=== PATIENT | female | born 1980 | race Caucasian/White ===

== ENCOUNTER 2016-07-29 19:18 | Emergency (ER) | payer OTHER ==
[~2016-07-29] VITALS: Ht 175.3 cm; Wt 81.2 kg
[2016-07-29 19:20] VITALS: BP 113/70; PULSE 64; RESP 16; TEMP 98.5; O2SAT 99
[2016-07-29] MEDS ORDERED: KETOROLAC TROMETHAMINE 60 MG/2 ML (IM) VIAL IM ONE (20:30)
[2016-07-29] MEDS ORDERED: ORPHENADRINE INJ 60 MG/2 ML AMP IM ONE (20:30)
--- NOTE | 2016-07-29 20:31 | PD ---
HPI Chief Complaint: Back/ Neck Pain or Injury Time Seen by Provider: 20:00 Travel History International Travel<30 days: No Contact w/Intl Traveler<30days: No Traveled to known affect area: No History of Present Illness HPI 36-year-old female presents emergency department for evaluation of low back pain. She reports that earlier today while getting into her car she felt a mild pain in the low back. She reports that the pain has progressively gotten worse and spasming in nature. Pain is nonradiating and improves with rest. She became concerned when she had a little bit of numbness in the left lower extremity anterior portion from the ankle into the foot. She denies any weakness of the extremity she denies any incontinence she denies any difficulty ambulate. She denies any previous medical history. No previous injury to the back. PFSH Past Medical History Medical History: Denies Significant Hx Diminished Hearing: No Tetanus Vaccination: Unknown Influenza Vaccination: Yes ?: Not LMP: NOW Social History Alcohol Use: No Tobacco Use: No Substance Use: No Allergies-Medications (Allergen,Severity, Reaction): Coded Allergies: No Known Allergies (Unverified , 07/29/16) Reported Meds & Prescriptions Reported Meds & Active Scripts Active Robaxin (Methocarbamol) 500 Mg Tab 500 Mg PO TID PRN Ibuprofen 800 Mg Tab 800 Mg PO Q8H PRN Review of Systems Except as stated in HPI: all other systems reviewed are Neg Physical Exam Narrative GENERAL: Alert, well-nourished, well-appearing female SKIN: Focused skin assessment warm/dry. HEAD: Atraumatic. Normocephalic. EYES: Pupils equal and round. No scleral icterus. No injection or drainage. NECK: Trachea midline. CARDIOVASCULAR: Regular rate and rhythm. No murmur appreciated. RESPIRATORY: No accessory muscle use. Clear to auscultation. Breath sounds equal bilaterally. GASTROINTESTINAL: Abdomen soft, non-tender, nondistended. MUSCULOSKELETAL: No obvious deformities. No clubbing. No cyanosis. No edema. BACK: No midline spine tenderness. Tender over the lumbar paraspinous muscles. NEUROLOGICAL: Awake and alert. No obvious cranial nerve deficits. Motor grossly within normal limits. Normal speech. 5 out of 5 strength in lower extremity. Sensation intact with 2 point discrimination. Dorsiflexion and plantar flexion intact. PSYCHIATRIC: Appropriate mood and affect; insight and judgment normal. Data Data Last Documented VS Vital Signs Date Time Temp Pulse Resp B/P Pulse Ox O2 Delivery O2 Flow Rate FiO2 07/29/16 19:20 98.5 64 16 113/70 99 Orders Ketorolac Inj (Toradol Inj) (07/29/16 20:30) Orphenadrine Inj (Norflex Inj) (07/29/16 20:30) MDM Medical Decision Making Medical Screen Exam Complete: Yes Emergency Medical Condition: Yes Differential Diagnosis Lumbar strain, herniated disc, sciatica Narrative Course 36-year-old female presents emergency department for evaluation of low back pain. She reports that while getting into her car this morning she felt pain in the back. She reports that throughout the day the pain has progressively gotten worse and spasming in nature. The pain is worse with movement, relieved with rest, 7/10 severity. She does report that she had some tingling sensation in the left lower extremity in the anterior aspect of the mid quintana to the top of the foot. She denies trauma, fever or chills, incontinence, weakness in lower extremities. On exam patient is tender over the paraspinous muscles in the lumbar region no midline tenderness.. She had 5 out of 5 strength in the lower extremities. Normal sensation with 2-point discrimination. Patient will be treated for lumbar strain with NSAIDs and muscle relaxers. She was instructed to avoid any physical activity this week. She is to follow-up with her primary doctor for reevaluation. She was instructed to return if she developed any increasing pain, numbness weakness in extremities, or incontinence. She agrees to plan Diagnosis Primary Impression: Lumbar strain Qualified Code: S39.012A - Lumbar strain, initial encounter Referrals: Primary Care Physician Patient Instructions: General Instructions, Low Back Strain (ED) Additional Instructions: Take the medications as needed for pain and muscle spasm. Make an appointment for follow-up with your primary doctor. Return to the emergency department if he developed increasing pain and/or numbness weakness in the lower extremities or incontinence. Scripts Methocarbamol (Robaxin)500 Mg [id number] Mg PO TID PRN (MUSCLE SPASM) #12 TAB Prov:Kayce Meyer 07/29/16 Ibuprofen 800 Mg [id number] Mg PO Q8H PRN (Pain/Inflammation) #30 TAB Prov:Kayce Meyer 07/29/16 Disposition: 01 DISCHARGE HOME Condition: Stable Kayce Meyer July 29, 2016 20:31
[2016-07-29] MEDS ORDERED: IBUP800T23 PO (20:52)
[2016-07-29] MEDS ORDERED: ROBA500T PO (20:52)
== END 2016-07-29 20:58 | disposition home or self-care (01) ==
LOC: PHEFT 19:18
DX: S39.012A Strain of muscle, fascia and tendon of lower back, initial encounter (principal); X58.XXXA Exposure to other specified factors, initial encounter; Y92.810 Car as the place of occurrence of the external cause
CPT/HCPCS: 96372; 99284; J1885; J2360

== ENCOUNTER 2017-09-28 19:00 | Inpatient (IN) ==
--- NOTE | 2017-09-28 20:48 | MH ---
cc: Jose Armando Gallagher MD DATE OF ADMISSION: 09/28/2017 ADMITTING DIAGNOSIS: at 40-41 weeks. HISTORY OF PRESENT ILLNESS: The patient is a 37-year-old, , white female, para 0-0-1-0 with an LMP of 12/17/2016, EDC of 09/23/2017. occurred with Clomid and IUI. Her course was benign. She had normal Panorama testing and normal ultrasound for growth. Her most recent ultrasound for size on 09/21/2017 was 300 grams. She is now admitted for induction for postdates. Her GBS culture is negative. PAST SURGICAL HISTORY: Third molars at age 31. MEDICATIONS: Vitamins and iron. ALLERGIES: NONE. TRANSFUSIONS: None. OBSTETRIC HISTORY: Spontaneous in 09/2016, did not require D and C. SOCIAL HISTORY: She is , same sex couple. Works at [employer] in [employer] activities. Alcohol, tobacco and drugs are none. FAMILY HISTORY: Noncontributory. REVIEW OF SYSTEMS: Negative. PHYSICAL EXAMINATION: GENERAL: A well-nourished, well-developed white female. VITAL SIGNS: Stable. HEENT: Normal. CHEST: Clear. HEART: Regular rate. BREASTS: Symmetrical. ABDOMEN: Gravid. EFW of 3800 grams. PELVIC: Cervix is closed but soft with mucus present. DIAGNOSTIC STUDIES: Her biophysical profile today was normal with an LYNDA of 7.8. Reactive NST score was 10/10. ASSESSMENT: As above. PLAN: She is now admitted for Cervidil, Pitocin induction. Should she have failure to progress or distress, would need to proceed to delivery. The patient agrees to proceed. MD YANI Morrow/giovanni/rhys , 05:35 PM , 05:41 PM
[2017-09-28 20:51] LABS: Baso % (Auto) 0.2 % (0.0-2.0); Eos # (Auto) 0.1 th/mm3 (0.0-0.4); Eos % (Auto) 0.7 % (0.0-4.0); Hematocrit 38.6 % (35.0-46.0); Hemoglobin 13.1 gm/dL (11.6-15.3); Lymph # (Auto) 1.5 th/mm3 (1.0-4.8); Lymph % (Auto) 13.1 % (9.0-44.0); Mean Corpuscular HGB Conc 33.8 % (32.0-36.0); Mean Corpuscular Hemoglobin 32.1 pg (27.0-34.0); Mean Corpuscular Volume 94.9 fL (80.0-100.0); Mean Platelet Volume 9.1 fL (7.0-11.0); Mono # (Auto) 0.7 th/mm3 (0.0-0.9); Neut # (Auto) 9.3 th/mm3 (1.8-7.7); Platelet Count 188 th/mm3 (150-450); Red Blood Count 4.07 mil/mm3 (4.00-5.30); Red Cell Distribution Width 15.7 % (11.6-17.2); White Blood Count 11.7 th/mm3 (4.0-11.0)
[2017-09-28] MEDS ORDERED: Sod Chloride 0.9% Inj 1,000 ML IRRIGATION SCH (21:00)
[2017-09-28] MEDS ORDERED: Zolpidem Tartrate 5 MG Tablet PO PRN (21:00)
[2017-09-28] MEDS ORDERED: Sod Chloride 0.9% Inj 1,000 ML IV.CONT PRN (21:06)
[2017-09-28] MEDS ORDERED: Sodium Chlor 0.9% Inj 500 ML IV.SIG PRN (21:06)
[2017-09-28] MEDS ORDERED: Naloxone Inj 0.4 MG/ML Vial IV.PUSH PRN (21:06)
[2017-09-28] MEDS ORDERED: fentaNYL Citrate Inj 100 MCG/2 ML Ampul IV.PUSH PRN ×2 (21:06)
[2017-09-28] MEDS ORDERED: Citric Acid/Sodium Citrate Liq 30 ML UDC PO SCH (21:15)
[2017-09-28 21:22] LABS: Bacteria,Urine Occasional /hpf; Bilirubin,Urine Negative (Negative); Clarity,Urine Clear (Clear); Color,Urine Straw (Yellw/Straw); Glucose,Urine (UA) Negative (Negative); Leukocyte Esterase,Urine Negative (Negative); Nitrite,Urine Negative (Negative); Specific Gravity,Urine 1.008 (1.002-1.035); Squamous Epithelial Cell,Urine 1 /hpf (0-5)
[2017-09-28] MEDS ORDERED: Oxytocin 30 Units/500ml Premix 30 UNITS/500 ML BAG IV.SIG ONE (21:30)
[2017-09-29 01:13] LABS: Amphetamine Urine With Conf Neg (Neg); Benzodiazepine Urine With Conf Neg (Neg)
[2017-09-29] MEDS ORDERED: Oxytocin 30 Units/500ml Premix 30 UNITS/500 ML BAG IV.SIG PRN ×2 (06:30→22:16)
[2017-09-29] MEDS ORDERED: Ketorolac Inj 30 MG/ML (IVP) Vial IV.PUSH PRN (10:02)
[2017-09-29] MEDS ORDERED: Acetaminophen 325 MG Tablet PO PRN (11:49)
[2017-09-29] MEDS ORDERED: Ketorolac Inj 30 MG/ML (IVP) Vial IV.PUSH ONE (12:00)
[2017-09-29] MEDS ORDERED: Phenylephrine/NS 1000 MCG/10ML Syringe IV.PUSH ONE (12:00)
[2017-09-29] MEDS ORDERED: Ibuprofen 600 MG Tablet PO PRN (17:15)
[2017-09-29] MEDS ORDERED: Oxytocin 30 Units/500ml Premix 30 UNITS/500 ML BAG IV.SIG ONE (17:15)
[2017-09-29] MEDS ORDERED: Morphine Sulfate PF Inj 5 MG/10 ML Ampul ONE (17:27)
[2017-09-29] MEDS ORDERED: Simethicone 80 MG Chew Tablet PO PRN (18:00)
--- NOTE | 2017-09-29 19:01 | MP ---
cc: Jose Armando Gallagher MD, John A MD DATE OF OPERATION: 09/28/2017 PREOPERATIVE DIAGNOSES: 1. at 40-41 weeks. 2. Advanced maternal age of 37 3. Failure to progress. 4. Occiput posterior. POSTOPERATIVE DIAGNOSES: 1. at 40-41 weeks 2. Advanced maternal age of 37 3. Failure to progress. 4. Occiput posterior. 5. Delivered. PROCEDURE PERFORMED: Primary low transverse section. ANESTHESIA: Spinal. SURGEON: Jose Armando Gallagher MD MAINTENANCE PERSON Mahin Ugarte ESTIMATED BLOOD LOSS: About 200 mL FLUIDS: 1.1 liter crystalloid. OBJECTIVE FINDINGS: Following induction of adequate spinal anesthesia, the patient was prepped and draped supine on the operating table in left lateral tilt position in usual sterile fashion, with the bladder being drained via Poole catheterization. The abdomen was opened through a Pfannenstiel incision using a knife to cut down from the skin to the fascia. The fascia opened transversely, stripped from the muscles, rectus muscle split in the midline and the peritoneum opened sharply without incident. The bladder flap was taken down sharply and retracted inferior with the Yesenia blade. The lower uterine segment was incised transversely with a knife and extended with blunt dissection. Membranes revealed clear fluid. Baby was in the ROP position. The vacuum extractor was applied to the occiput and used to gently lift the head through the utero abdominal wound. Mouth was suctioned. The cord clamped and cut and the baby passed to awaiting team. A viable vigorous male, Apgars were 9 and 9, weight 9 pounds 7 ounces. Cord blood sent for typing. The placenta sent for donation. The uterine cavity was cleaned with laps. Uterus was exteriorized and closed in 2 layers running suture, first with a running locking stitch of 0 Vicryl, second with a running imbricating stitch of 0 Vicryl with running chromic stitch for hemostasis in the midline. Posterior inspection of the uterus, tubes and ovaries were normal. Irrigation was performed. No bleeding was evident and the bladder flap was closed with running stitch of 3-0 Vicryl. All laps and retractors were removed. Counts were correct and the anterior peritoneum closed with running 2-0 Vicryl. The fascia closed with a running locking stitch of 0 Vicryl corner to midline and tied, subcu closed with 3-0 Vicryl, the skin with a running subcuticular 3-0 Monocryl. Dermabond applied. All counts were correct and the patient was awakened and taken to the recovery room in good condition. MD YANI Morrow/ , 06:29 PM , 06:37 PM
[2017-09-29] MEDS ORDERED: Oxytocin 30 Units/500ml Premix 30 UNITS/500 ML BAG ONE (19:27)
[2017-09-30] MEDS: Ibuprofen 600 MG Tablet PO PRN ×2 (12:13→18:04)
[2017-09-30] MEDS ORDERED: Diphtheria/Tetanus/Pertussis Vaccine Inj 0.5 ML Syringe IM ONE (16:00)
[2017-09-30] MEDS ORDERED: Measles/Mumps/Rubella Vaccine Inj 0.5 ML Vial SQ ONE (16:00)
[2017-09-30 16:55] LABS: Hematocrit 29.2 % (35.0-46.0); Hemoglobin 10.3 gm/dL (11.6-15.3); Mean Corpuscular HGB Conc 35.4 % (32.0-36.0); Mean Corpuscular Hemoglobin 33.1 pg (27.0-34.0); Mean Corpuscular Volume 93.5 fL (80.0-100.0); Mean Platelet Volume 8.7 fL (7.0-11.0); Platelet Count 181 th/mm3 (150-450); Red Blood Count 3.12 mil/mm3 (4.00-5.30); Red Cell Distribution Width 15.6 % (11.6-17.2); White Blood Count 13.2 th/mm3 (4.0-11.0)
[2017-10-01] MEDS: Ibuprofen 600 MG Tablet PO PRN ×3 (00:34→13:20)
--- NOTE | 2017-10-01 06:37 | MD ---
cc: Jose Armando Gallagher MD DATE OF DISCHARGE: 10/01/2017 ADMITTING DIAGNOSIS: 1. at 40-41 weeks. 2. Advanced maternal age 37. DISCHARGE DIAGNOSIS: 1. at 40-41 weeks. 2. Advanced maternal age 37. 3. Failure to progress, occiput posterior, delivered. PROCEDURES: 1. Induction of labor. 2. A primary low transverse section on 09/28/2017. HOSPITAL COURSE: This is a 37-year-old white female, para 0-0-1-0 with an LMP of 12/17/2016, EDC of 09/23/2017. Her course was benign. Her labs were normal. Her Strep culture was negative. She became postdates and was admitted for Cervidil induction on the night of 09/28/2017. She was switched to Pitocin the next day, had spontaneous rupture of membranes, but failed to progress beyond 1 cm. She underwent a primary low transverse section on the evening of 09/28/2017 with delivery of a viable vigorous male, Apgars were 9 and 9, weight 9 pounds 7 ounces. Baby was named Andrew. She was . did well. Discharged home in excellent condition on 10/01/2017. Her pre and post postop labs were normal. She was advised NPV, light activity, no driving, return to see me in 1 week. She was carefully instructed in wound instructions and care. She is to use OTC Motrin and Tylenol for pain relief. MD YANI Morrow/GIULIANA , 06:25 AM , 06:31 AM GENO
== END 2017-10-01 13:47 | disposition home or self-care (01) ==
LOC: H2E 19:00 → H1EA 09-29 20:12
PROVIDERS: ADMIT Obstetrics & Gynecology; ATTEND Obstetrics & Gynecology